=== PATIENT | male | born 1970 | race African-American/Black ===

== ENCOUNTER 2020-08-11 19:47 | Emergency (ER) | payer MEDICAID ==
[~2020-08-11] VITALS: Ht 170.2 cm; Wt 97.0 kg
--- NOTE | 2020-08-11 19:47 | NUR ---
INITIAL PT CONTACT. PT PRESENTS TO ED VIA EMS FROM [facility] C/O SYNCOPAL EVENT. PT DOES NOT REMEBER EVENT. PT IS IN [place] VISITING FROM [place], PT STATES HE HAS NOT BEEN EATING AND DRINKING MUCH AND HAS NOT HAD ANYTHING SINCE THIS AM. PT A&OX4 UPON ARRIVAL TO ED, NO COMPLAINTS AT THIS TIME, "I FEEL FINE". PER EMS PT BLOOD GLUCOSE WAS 90, 500ML NS ALSO GIVEN EN ROUTE. PT PLACED ON CONTINUOUS PULSE OX AND CARDIAC MONITORING. PT DENIES ANY ADDITIONAL NEEDS AT THIS TIME. CALL LIGHT AND PERSONAL BELONGINGS WITHIN REACH. AWAITING ERP
--- NOTE | 2020-08-11 20:32 | NUR ---
PT RETURNED FROM CT
[2020-08-11 21:02] LABS: BASOPHILS % (AUTO) 1 % (0-1); EOSINOPHILS % (AUTO) 1 % (1-7); LYMPHOCYTES % (AUTO) 38 % (22-44); MEAN CORPUSCULAR HEMOGLOBIN 31.3 pg (27.5-34.5); MEAN CORPUSCULAR HGB CONC 33.6 g/dL (33.2-36.2); MEAN PLATELET VOLUME 7.8 fL (7.4-10.4); MONOCYTES % (AUTO) 9 % (2-9); NEUTROPHILS % (AUTO) 51 % (42-75); PLATELET COUNT 268 x10^3/uL (130-400); RED BLOOD COUNT 4.21 x10^6/uL (4.38-5.82); RED CELL DISTRIBUTION WIDTH 15.6 % (9.4-14.8)
[2020-08-11 21:03] LABS: MD NO
[2020-08-11 21:19] LABS: ALBUMIN 3.7 g/dL (3.4-5.0); ANION GAP 7 mmol/L (5-15); CALCIUM 8.4 mg/dL (8.5-10.1); CHLORIDE 107 mmol/L (98-107); CREATININE 1.31 mg/dL (0.7-1.3)
--- NOTE | 2020-08-11 21:31 | NUR ---
PT AMBULATORY WITH STEADY GAIT TO BATHROOM. PT DENIES ANY LIGHT-HEADEDNESS OR DIZZINESS. "I AM READY TO BREAK OUT OF HERE, I FEEL GREAT!". PT RETURNED TO ROOM, NO ADDITIONAL NEEDS. ERP NOTIFIED. AWAITING D/C
[2020-08-11 21:42] VITALS: BP 132/68
--- NOTE | 2020-08-11 21:43 | NUR ---
Patient given discharge instructions and they have confirmed that they understand the instructions. Patient ambulatory with steady gait.
== END 2020-08-11 21:44 | disposition home or self-care (01) ==
LOC: ED 21:03
DX: S09.90XA Unspecified injury of head, initial encounter (principal); R07.9 Chest pain, unspecified; R55 Syncope and collapse; R11.0 Nausea; R94.31 Abnormal electrocardiogram [ECG] [EKG]; F17.200 Nicotine dependence, unspecified, uncomplicated; X58.XXXA Exposure to other specified factors, initial encounter; Y93.89 Activity, other specified; Y92.89 Other specified places as the place of occurrence of the external cause; Y99.8 Other external cause status
CPT/HCPCS: 36415; 70450; 71045; 80048; 80320; 82040; 85025; 93005; 99285; G0480